=== PATIENT | male | born 1985 | race African-American/Black ===

== ENCOUNTER 2017-02-05 19:48 | Emergency (ER) | payer OTHER ==
[~2017-02-05] VITALS: Ht 182.9 cm; Wt 109.1 kg
[2017-02-05 19:52] VITALS: BP 142/89
[2017-02-05] MEDS ORDERED: IBUPROFEN 600 MG TABLET PO ONE (20:00)
[2017-02-05] MEDS ORDERED: ACETAMINOPHEN 500 MG TABLET PO ONE (20:00)
[2017-02-05 20:56] LABS: INFLUENZA TYPE A POSITIVE FOR TYPE A (NEGATIVE); INFLUENZA TYPE B NEGATIVE FOR TYPE B (NEGATIVE)
== END 2017-02-05 23:12 | disposition home or self-care (01) ==
LOC: EMS 19:51
DX: J11.1 Influenza due to unidentified influenza virus with other respiratory manifestations (principal); J02.9 Acute pharyngitis, unspecified
CPT/HCPCS: 71020; 87804; 99285